=== PATIENT | male | born 1975 | race Caucasian/White ===

== ENCOUNTER → 2016-07-03 | Outpatient (CLI) | payer OTHER ==
[~2016-07-03] MED LIST: FLUT0.15; IBUP-103 PO; SIMV-151
[2016-07-03 11:06] LABS: ESTIMATED AVERAGE GLUCOSE 108 mg/dl; HA1C FLAG Normal (Normal)
[2016-07-03 11:30] LABS: CHOLESTEROL 159 mg/dl (0-200); CHOLESTEROL/HDL RATIO 4.8; HDL CHOLESTEROL 33 mg/dl; TRIGLYCERIDES 312 mg/dl (0-150); VERY LOW DENSITY LIPOPROT CALC 62 mg/dl
== END ==
LOC: C.LABBC 08:30
PROVIDERS: ATTEND Family Medicine
DX: E78.5 Hyperlipidemia, unspecified (principal); R73.01 Impaired fasting glucose

== ENCOUNTER → 2016-08-19 | Outpatient (CLI) | payer OTHER ==
--- NOTE | 2016-08-19 08:46 | DIAGNOSTIC IMAGING REPORT ---
RIGHT FOOT 3 VIEWS CLINICAL HISTORY: Right foot pain. FINDINGS: 3 views of the right foot are compared to study dated 01/05/2012. The skeletal structures are well mineralized. No fracture is seen. The joint spaces of the foot are well-maintained. There are large dorsal and plantar calcaneal enthesophytes. The overlying soft tissues are within normal limits. IMPRESSION: No acute bony abnormality is seen in the right foot. Electronically signed by: Marcus Webster M.D. 08/19/2016 8:45 AM Dictated Date/Time: 08/19/2016 8:41 AM
== END | disposition home or self-care (01) ==
LOC: C.LABBC 08:16
PROVIDERS: ATTEND Physician Assistant Medical
DX: M79.671 Pain in right foot (principal)

== ENCOUNTER 2016-10-10 09:49 | Emergency (ER) | payer OTHER ==
[~2016-10-10] VITALS: Ht 182.9 cm; Wt 83.6 kg
[2016-10-10 09:57] VITALS: TEMP 36.7; Ht 182.9 cm; Wt 83.6 kg
--- NOTE | 2016-10-10 10:32 | EMERGENCY ROOM VISIT NOTE ---
History Report prepared by Марина: Jimy Nieto Under the Supervision of: Dr. Amarilis Higginbotham D.O. First contact with patient: 10:15 Chief Complaint: RASH Stated Complaint: REDNESS, CHEST AND BACK PAIN Nursing Triage Summary: Pt c/o left chest pain on Tuesday, Tuesday he got a rash on his left chest. Rash is spreading to back. Painful, itchy. Patient states both feet are numb since yesterday. History of Present Illness The patient is a 41 year old male who presents to the Emergency Room with complaints of a worsening rash that began 5 days ago. He rates his pain a 3/10 in severity. He notes that he experienced left chest pain last week, that has currently resolved. His rash began on his left chest, and is spreading onto his back. He describes the rash and painful and itchy. He is also experiencing bilateral foot pain and numbness. This has never happened before to him in the past. This has never happened to the patient before. He states that he notes more mucous drainage in his throat. He denies any fever, chills, diarrhea, shortness of breath, and pedal edema. 20 years ago, he had a foot surgery. He has Gabapentin that he takes for a neck condition, but has not taken any since his feet began being numb. He has a history of hyperlipidemia, for which he takes statins. Source of History: patient Onset: 5 days ago Position: chest, back Symptom Intensity: 3/10 Quality: ache, other (itchy) Timing: constant Associated Symptoms: + numbness, + rash, No fevers, No chills, No SOB, No diarrhea Note: He has bilateral foot pain. He denies any pedal edema, or any other abnormal symptoms. Review of Systems See HPI for pertinent positives & negatives. A total of 10 systems reviewed and were otherwise negative. Past Medical & Surgical Medical Problems: (1) Hyperlipidemia (2) Kidney disease (3) Kidney stone Family History No pertinent family history Social History Smoking Status: Never Smoker Smokeless Tobacco Use: No Alcohol Use: none Drug Use: none Occupation Status: employed Current/Historical Medications Scheduled Fluticasone Propionate (Nasal) (Flonase Allergy Relief), 1 SPRAY NA DAILY Ibuprofen Tab (Advil), 200-600 MG PO Q4HR PRN Miscellaneous Medications Simvastatin (Simvastatin) Allergies Coded Allergies: No Known Allergies (Unverified , 10/10/16) Physical Exam Vital Signs Date Time Temp Pulse Resp B/P (MAP) Pulse Ox O2 Delivery O2 Flow Rate FiO2 10/10/16 11:55 58 18 119/62 98 Room Air 10/10/16 09:57 36.7 67 16 126/90 98 Room Air Physical Exam GENERAL: alert, well appearing, well nourished, no distress, non-toxic EYE EXAM: normal conjunctiva, PERRL and EOM's grossly intact OROPHARYNX: no exudate, no erythema, lips, buccal mucosa, and tongue normal and mucous membranes are moist NECK: supple, no nuchal rigidity, no adenopathy, non-tender LUNGS: Clear to auscultation. Normal chest wall mechanics HEART: no murmurs, S1 normal and S2 normal ABDOMEN: abdomen soft, non-tender, normo-active bowel sounds, no masses, no rebound or guarding. BACK: Back is symmetrical on inspection and there is no deformity, no midline tenderness, no CVA tenderness. SKIN: Left mid chest, there is a grouped area of vesicles on an erythematous base, no drainage, patchy similar areas along the same dermatomal levels extending to the left lateral chest and into the left lateral back. UPPER EXTREMITIES: upper extremities are grossly normal. LOWER EXTREMITIES: No pitting edema. NEURO EXAM: Normal sensorium, cranial nerves II-XII grossly intact, normal speech, no gross weakness of arms, no gross weakness of legs. Medical Decision & Procedures Laboratory Results 10/10/16 11:15 Red Blood Count 5.67, Mean Corpuscular Volume 82.5, Mean Corpuscular Hemoglobin 27.7, Mean Corpuscular Hemoglobin Concent 33.5, Mean Platelet Volume 9.8, Neutrophils (%) (Auto) 64.7, Lymphocytes (%) (Auto) 21.7, Monocytes (%) (Auto) 8.9, Eosinophils (%) (Auto) 3.3, Basophils (%) (Auto) 0.6, Neutrophils # (Auto) 6.30, Lymphocytes # (Auto) 2.11, Monocytes # (Auto) 0.87, Eosinophils # (Auto) 0.32, Basophils # (Auto) 0.06 10/10/16 11:15 Test 10/10/16 11:15 White Blood Count 9.74 K/uL (4.8-10.8) Red Blood Count 5.67 M/uL (4.7-6.1) Hemoglobin 15.7 g/dL (14.0-18.0) Hematocrit 46.8 % (42-52) Mean Corpuscular Volume 82.5 fL (80-100) Mean Corpuscular Hemoglobin 27.7 pg (25-34) Mean Corpuscular Hemoglobin Concent 33.5 g/dl (32-36) Platelet Count 214 K/uL (130-400) Mean Platelet Volume 9.8 fL (7.4-10.4) Neutrophils (%) (Auto) 64.7 % Lymphocytes (%) (Auto) 21.7 % Monocytes (%) (Auto) 8.9 % Eosinophils (%) (Auto) 3.3 % Basophils (%) (Auto) 0.6 % Neutrophils # (Auto) 6.30 K/uL (1.4-6.5) Lymphocytes # (Auto) 2.11 K/uL (1.2-3.4) Monocytes # (Auto) 0.87 K/uL (0.11-0.59) Eosinophils # (Auto) 0.32 K/uL (0-0.5) Basophils # (Auto) 0.06 K/uL (0-0.2) RDW Standard Deviation 41.2 fL (36.4-46.3) RDW Coefficient of Variation 13.8 % (11.5-14.5) Immature Granulocyte % (Auto) 0.8 % Immature Granulocyte # (Auto) 0.08 K/uL (0.00-0.02) Anion Gap 9.0 mmol/L (3-11) Est Creatinine Clear Calc Drug Dose 107.8 ml/min Estimated GFR () 108.6 Estimated GFR (Non- 93.7 BUN/Creatinine Ratio 19.3 (10-20) Calcium Level 8.8 mg/dl (8.5-10.1) Total Bilirubin 0.6 mg/dl (0.2-1) Aspartate Amino Transf (AST/SGOT) 11 U/L (15-37) Alanine Aminotransferase (ALT/SGPT) 28 U/L (12-78) Alkaline Phosphatase 57 U/L (45-117) Total Creatine Kinase 71 U/L (39-308) Total Protein 7.6 gm/dl (6.4-8.2) Albumin 4.0 gm/dl (3.4-5.0) Globulin 3.6 gm/dl (2.5-4.0) Albumin/Globulin Ratio 1.1 (0.9-2) Laboratory results per my review. Medications Administered Medications (Trade) Dose Ordered Sig/Merry Route Start Time Stop Time Status Last Admin Dose Admin Gabapentin (Neurontin Cap) 100 mg NOW STAT PO 10/10/16 10:33 10/10/16 10:34 DC 10/10/16 11:11 100 MG ECG Indication: chest pain, back/shoulder pain Rate (beats per minute): 52 Rhythm: sinus bradycardia Findings: no acute ischemic change, no ectopy, other (Normal axis, normal intervals) ED Course 1015: The patient was evaluated in room B5. A complete history and physical exam was performed. 1033: Ordered Gabapentin 100 mg PO 1232:Upon reevaluation, the patient is feeling better. I discussed the findings and the treatment plan with the patient. He verbalizes agreement and understanding. He was discharged home. Medical Decision Differential diagnosis includes etiologies such as cellulitis, abscess, MRSA infection, DVT, necrotizing fasciitis, dermatitis, drug eruption, as well as others were entertained. Medication Reconciliation: I attest that I have personally reviewed the patient' s current medication list. Blood pressure screening: Patient was found to have normal blood pressure on screening and does not require follow-up. Chest pain last week likely preceding symptoms of herpes zoster which is now evident has a rash on the patient's chest flank and back on the left side within the same dermatomal pattern. Doubt patient's complaints of intermittent foot pain related to chest pain which was original complaint. Discussed with patient footwear, activity, follow-up with PCP and possible need for podiatry evaluation. No evidence of edema, no current symptoms, normal pulses, doubt DVT , arterial insufficiency. Possible early peripheral neuropathy however unclear etiology. Patient not a diabetic not an alcoholic. No other acute left leg abnormalities, discussed possibly related to patient's use of statin, LFTs and CPK within normal limits on labs. Doubt acute infectious etiology or septic arthritis. Doubt patient's chest pain related to ACS, dissection, tamponade, effusion, pneumothorax, infiltrate, perforation, GI bleed. Patient's only risk factor for ACS is elevated cholesterol, thus making patient's heart score 1. Patient with a normal EKG here, and no chest pain since last week. Impression Primary Impression: Herpes zoster Additional Impression: Foot pain, bilateral Scribe Attestation The scribe's documentation has been prepared under my direction and personally reviewed by me in its entirety. I confirm that the note above accurately reflects all work, treatment, procedures, and medical decision making performed by me. Departure Information Dispostion Home / Self-Care Referrals Yan Friend D.O.[facility] (PCP) Forms HOME CARE DOCUMENTATION FORM, IMPORTANT VISIT INFORMATION, WORK / SCHOOL INSTRUCTIONS Patient Instructions My [facility] Additional Instructions Please call and follow-up with your family doctor. You are still contagious with the shingles until the blisters become crusted over. You may continue using the gabapentin or additional over the counter medications for pain. Please discuss the intermittent foot pain you have had also. If you have any worsening pain, develop swelling, fevers, cough, trouble breathing, vomiting, or you have any other new or concerning symptoms, please return to the emergency room. Problem Qualifiers Primary Impression: Herpes zoster Herpes zoster complications: without complications Qualified Codes: B02.9 - Zoster without complications
[2016-10-10] MEDS ORDERED: GABAPENTIN 100 MG CAP PO STA (10:33)
[2016-10-10 11:38] LABS: BASO % 0.6 %; BASO ABS # 0.06 K/uL (0-0.2); COMPLETE YES; EOS % 3.3 %; HEMATOCRIT 46.8 % (42-52); IG% 0.8 %; LYMPH % 21.7 %; LYMPH ABS # 2.11 K/uL (1.2-3.4); MEAN CELL VOLUME 82.5 fL (80-100); MEAN CORPUSCULAR HEMOGLOBIN 27.7 pg (25-34); MEAN CORPUSCULAR HGB CONC 33.5 g/dl (32-36); MEAN PLATELET VOLUME 9.8 fL (7.4-10.4); MONO % 8.9 %; NEUT % 64.7 %; PLATELET COUNT 214 K/uL (130-400); RED BLOOD COUNT 5.67 M/uL (4.7-6.1); WHITE BLOOD COUNT 9.74 K/uL (4.8-10.8)
[2016-10-10 11:55] VITALS: BP 119/62; PULSE 58; O2SAT 98
[2016-10-10 11:55] LABS: BUN/CREATININE RATIO 19.3 (10-20); CALCIUM 8.8 mg/dl (8.5-10.1); POTASSIUM 3.9 mmol/L (3.5-5.1)
[2016-10-10 11:58] LABS: ALB/GLOB RATIO 1.1 (0.9-2)
== END 2016-10-10 12:25 | disposition home or self-care (01) ==
LOC: C.EDB 09:51
DX: B02.9 Zoster without complications (principal); M79.672 Pain in left foot; M79.671 Pain in right foot; R00.1 Bradycardia, unspecified; E78.5 Hyperlipidemia, unspecified; Z87.442 Personal history of urinary calculi